=== PATIENT | female | born 1950 | race Caucasian/White ===

== ENCOUNTER 2017-12-26 09:28 | Day surgery (SDC) | payer MEDICARE, OTHER | END 2017-12-26 13:02 | disposition home or self-care (01) | LOC: GIL 09:28 | DX: K29.70 Gastritis, unspecified, without bleeding (principal); K64.8 Other hemorrhoids; I10 Essential (primary) hypertension; J44.9 Chronic obstructive pulmonary disease, unspecified; E78.5 Hyperlipidemia, unspecified; F17.200 Nicotine dependence, unspecified, uncomplicated | CPT/HCPCS: 43239; 88305 ==